=== PATIENT | male | born 1960 | race Two or more races ===

== ENCOUNTER 2022-01-04 08:50 | Emergency (ER) | payer OTHER ==
[~2022-01-04] VITALS: Ht 180.3 cm; Wt 99.3 kg
[2022-01-04] MEDS ORDERED: ROSUVASTATIN CA20 MG PO (09:26)
[2022-01-04] MEDS ORDERED: IRBESARTAN300 MG PO (09:26)
[2022-01-04] MEDS ORDERED: AMLODIPINE BESYL5 MG PO (09:26)
[2022-01-04] MEDS ORDERED: KETO10TA2 PO (10:25)
[2022-01-04] MEDS ORDERED: NEURONTIN300 MG PO (10:25)
[2022-01-04] MEDS ORDERED: ZOVIRAX800 MG PO (10:25)
== END 2022-01-04 10:43 | disposition home or self-care (01) ==
LOC: ER 08:50
DX: B02.9 Zoster without complications (principal); I10 Essential (primary) hypertension; E78.00 Pure hypercholesterolemia, unspecified